=== PATIENT | female | born 1970 | race American Indian/Alaskan Native ===

== ENCOUNTER 2021-09-26 12:22 | Emergency (ER) | payer SELFPAY ==
[2021-09-26 13:46] LABS: Basophils # (Auto) 0.1 K/mm3 (0.0-0.1); Basophils % (Auto) 0.5 % (0.0-1.8); Eosinophils # (Auto) 0.2 K/mm3 (0.0-0.4); Eosinophils % (Auto) 1.2 % (0.0-4.3); Hematocrit 46.8 % (30.3-42.9); Lymphocytes # (Auto) 2.1 K/mm3 (1.2-5.4); Lymphocytes % (Auto) 17.1 % (13.4-35.0); Mean Corpuscular HGB Conc 32 % (30-34); Mean Corpuscular Volume 83 fl (79-97); Monocytes # (Auto) 0.5 K/mm3 (0.0-0.8); Monocytes % (Auto) 3.8 % (0.0-7.3); Platelet Count 299 K/mm3 (140-440); Red Blood Count 5.64 M/mm3 (3.65-5.03); Red Cell Distribution Width 16.6 % (13.2-15.2)
[2021-09-26 14:09] LABS: Albumin 4.1 g/dL (3.9-5); Calcium 9.6 mg/dL (8.4-10.2)
[2021-09-26] MEDS ORDERED: KETOROLAC 30 MG/1 ML INJ IV ONE (15:46)
[2021-09-26] MEDS ORDERED: FAMOTIDINE 20 MG/2 ML INJ IV ONE (15:46)
[2021-09-26] MEDS ORDERED: SODIUM CHLORIDE 0.9% 1000 ML 1,000 ML IV ONE ×2 (15:46→16:09)
--- NOTE | 2021-09-26 15:54 | Emergency Department Report ---
ED Abdominal Pain HPI - General Chief Complaint: Abdominal Pain Stated Complaint: ABD PAIN Time Seen by Provider: 09/26/21 15:49 Source: patient, EMS Mode of arrival: Stretcher Limitations: No Limitations - History of Present Illness Initial Comments: 51-year-old morbidly obese female with history of chronic crack cocaine abuse (patient states she last used crack cocaine 1 day ago "to help dull the pain"), hypertension, chronic abdominal pain times greater than 1 year per her report, presents for evaluation of abdominal pain. Patient states this is in a "an exacerbation of my underlying abdominal pain and I think to multiple places to get it checked out but no one can tell me." Patient states she initially began having symptoms 3 years ago and was placed on medication by her PCP including medication for IBS as well as acid reflux. Patient states she did not follow-up with a GI doctor. She reports she last had "an attack" the same abdominal pain approximately 1 month ago on her birthday. She states this particular pain has been persistent for the past 4 to 5 days and she has not gone to the emergency department or seen a medical provider for it. Pain is pressure-like constant and localized to her left lower quadrant. She reports multiple episodes of watery nonbloody vomiting and reports having loose stools while here in the ER. She denies any melena hematochezia or hematemesis. He denies any UTI symptoms. Surgical history to her abdomen is significant for tubal ligation, cholecystectomy. Pain currently 8 out of 10 MD Complaint: abdominal pain -: days(s) Location: LLQ Radiation: none Migration to: no migration Severity: severe Severity scale (0 -10): 8 Quality: cramping, other (Pressure-like) Consistency: constant Improves With: nothing Worsens With: nothing Context: other (Unknown) Associated Symptoms: denies other symptoms - Related Data Previous Rx's Medication Instructions Recorded Last Taken Type Dicyclomine [Bentyl] 20 mg PO QID PRN #28 tablet 09/26/21 Unknown Rx Famotidine [Acid Controller] 20 mg PO DAILY 30 Days #30 09/26/21 Unknown Rx Ondansetron [Zofran Odt] 4 mg PO Q8HR 3 Days #12 tab.rapdis 09/26/21 Unknown Rx Allergies Allergy/AdvReac Type Severity Reaction Status Date / Time amoxicillin AdvReac Unknown Verified 09/26/21 12:30 ED Review of Systems ROS: Stated complaint: ABD PAIN Other details as noted in HPI Comment: All other systems reviewed and negative Constitutional: no symptoms reported Gastrointestinal: abdominal pain, nausea, vomiting, diarrhea ED Past Medical Hx - Past Medical History Previous Medical History?: Yes Hx Hypertension: Yes - Surgical History Past Surgical History?: Yes Hx Cholecystectomy: Yes - Family History Family history: no significant - Social History Smoking Status: Never Smoker Substance Use Type: Cocaine - Medications Home Medications: Home Medications Medication Instructions Recorded Confirmed Last Taken Type Dicyclomine [Bentyl] 20 mg PO QID PRN #28 tablet 09/26/21 Unknown Rx Famotidine [Acid Controller] 20 mg PO DAILY 30 Days #30 09/26/21 Unknown Rx Ondansetron [Zofran Odt] 4 mg PO Q8HR 3 Days #12 tab.rapdis 09/26/21 Unknown Rx ED Physical Exam - General Limitations: No Limitations, Language Barrier General appearance: alert, obese, other (Patient sitting up right lateral decubitus position, rocking back and forth, complaining of feeling nausea) - Head Head exam: Present: atraumatic, normocephalic, normal inspection - Eye Eye exam: Present: normal appearance, PERRL, EOMI - ENT ENT exam: Present: normal exam, normal orophraynx, mucous membranes dry, normal external ear exam - Neck Neck exam: Present: normal inspection, full ROM. Absent: tenderness, meningismus, lymphadenopathy, thyromegaly - Respiratory Respiratory exam: Present: normal lung sounds bilaterally - Cardiovascular Cardiovascular Exam: Present: regular rate, normal rhythm, normal heart sounds. Absent: bradycardia, tachycardia, irregular rhythm - GI/Abdominal GI/Abdominal exam: Present: soft, tenderness (Mild reproducible left lower quadrant tenderness palpation on exam), other (Obese) - Extremities Exam Extremities exam: Present: normal inspection, full ROM, normal capillary refill - Back Exam Back exam: Present: normal inspection, full ROM - Neurological Exam Neurological exam: Present: alert, oriented X3, CN II-XII intact, normal gait, motor sensory deficit - Psychiatric Psychiatric exam: Present: normal affect, normal mood - Skin Skin exam: Present: warm, dry, intact, normal color ED Course Vital Signs 09/26/21 12:28 Pulse Rate 115 H Respiratory 14 Rate Blood Pressure 144/115 [Left] O2 Sat by Pulse 98 Oximetry - Reevaluation(s) Reevaluation #1: 09/26/21 23:06 pt reassessed; she is comfortable and well appearing; she confirms that she was given that she was given a p.o. challenge and she was able to tolerate this without reproduction of worsening of her symptoms, patient counseled concerning necessity of cessation of using cocaine. Labs and diagnostic imaging results were discussed at length with the patient. She verbalized understanding. ED Medical Decision Making - Lab Data Result diagrams: 09/26/21 13:00 09/26/21 13:00 - Radiology Data Radiology results: report reviewed - Medical Decision Making 51-year-old morbidly obese female presents for evaluation of what she states is acute on chronic abdominal pain. Vital signs stable. Labs reviewed. Diagnostic imaging results reviewed analgesics provided. Patient given p.o. challenge here and she was able to tolerate this without reproduction of worsening of her symptoms. She is significant increased improvement in her clinical presentation and reports she feels better. Patient counseled concerning cocaine abuse cessation. She was instructed to follow-up with her primary care doctor within 1-2 business days for immediate reassessment. No further emergent work-up warranted at this time. Patient stable for discharge home. Critical Care Time: No Critical care attestation.: If time is entered above; I have spent that time in minutes in the direct care of this critically ill patient, excluding procedure time. ED Disposition Clinical Impression: Abdominal pain, Cocaine abuse Disposition: 01 HOME / SELF CARE / HOMELESS Is pt being admited?: No Does the pt Need Aspirin: No Condition: Stable Instructions: Abdominal Pain, Adult, [id number], Abdominal Pain (ED) Additional Instructions: Please follow up with your primary care doctor for further workup and immediate reassessment in 1-2 business days. This is very important. Drink clear fluids. Strongly recommended that you stop using crack cocaine as it is very dangerous for your heart and other organs, and it can cause you to prematurely. Take Zofran as needed for nausea. Take Bentyl as needed. And take famotidine 20 mg by mouth daily. Observe your symptoms very carefully. Return to the nearest emergency department as soon as possible if you develop severe worsening pain, vomiting, inability tolerate liquids or solids, any fever of 100.4 Fahrenheit or higher, or if any other new worrisome symptoms develop Prescriptions: Famotidine [Acid Controller] 20 mg PO DAILY 30 Days #30 Dicyclomine [Bentyl] 20 mg PO QID PRN #28 tablet PRN Reason: Pain , Severe (7-10) Ondansetron [Zofran Odt] 4 mg PO Q8HR 3 Days #12 tab.rapdis Referrals: PRIMARY CARE, [Primary Care Provider] - [place]
--- NOTE | 2021-09-26 19:01 | Cat Scan Report ---
CT ABDOMEN AND PELVIS WITHOUT IV CONTRAST INDICATION: morbid obesity, LLQ abdominal pain. COMPARISON: None available. TECHNIQUE: All CT scans at this facility use dose modulation, automated exposure control, iterative reconstructi on or weight based dosing, when appropriate, to reduce radiation dose to as low as reasonably achieva ble. FINDINGS: Lung Bases: No significant abnormality. Skeletal System: No acute abnormality. ABDOMEN: Liver: No significant abnormality. Gallbladder: Removed. Bile Ducts: No significant abnormality. Adrenals: No significant abnormality. Right Kidney: There are a few punctate nonobstructing calyceal stones. No hydronephrosis. Left Kidney: There are a few punctate nonobstructing calyceal stones. No hydronephrosis. Pancreas: No significant abnormality. Spleen: No significant abnormality. Upper GI tract: Small hiatal hernia. No acute finding. Lymph Nodes: No significant adenopathy. Aorta: No significant abnormality. Additional Findings: No significant abnormality. PELVIS: Colon: No acute abnormality. Urinary Bladder and Distal Ureters: No significant abnormality. Appendix: No significant abnormality. Lymph Nodes: No significant adenopathy. Additional Findings: None. IMPRESSION: 1. Within the limitations of non contrast technique, no acute process in the abdomen or pelvis. 2. Incidental findings, as above. Signer Name: Nicola Cruz MD Signed: 09/26/2021 6:57 PM Workstation Name: [id number]
[2021-09-26] MEDS ORDERED: ALUM-MAG HYDROXIDE-SIMETHICONE 200-200-20MG/5ML ORAL LIQD 30 ML PO ONE (20:25)
[2021-09-26] MEDS ORDERED: DICYCLOMINE 20 MG TAB PO ONE (20:25)
[2021-09-26 22:17] LABS: Mucus,Urine 2+ /HPF
[2021-09-26 22:18] LABS: Amphetamine Screen,Urine Negative; Benzodiazepines Screen,Urine Negative; Cannabinoid Screen,Urine Negative; Color,Urine Yellow (Yellow); Methadone Screen,Urine Negative; Opiate Screen,Urine Negative
[2021-09-26 22:30] LABS: Cocaine Screen,Urine Positive
[2021-09-27 00:57] VITALS: BP 137/102
== END 2021-09-27 00:57 | disposition home or self-care (01) ==
LOC: ED 12:22
DX: R10.32 Left lower quadrant pain (principal); F14.10 Cocaine abuse, uncomplicated; I10 Essential (primary) hypertension; Z90.49 Acquired absence of other specified parts of digestive tract; Z79.899 Other long term (current) drug therapy; Z88.1 Allergy status to other antibiotic agents
CPT/HCPCS: 36415; 74176; 80053; 80307; 81001; 82140; 83690; 84702; 85025; 96361; 96374; 96375; 99284; J1885; J3490; J7030